=== PATIENT | male | born 1990 | race African-American/Black ===

== ENCOUNTER 2018-01-14 15:09 | Emergency (ER) | payer SELFPAY ==
--- NOTE | 2018-01-14 16:42 | RAD ---
LEFT HAND THREE VIEWS: HISTORY: Pain. COMPARISON: None. FINDINGS: There is now abnormal volar angulation of the lunate with some widening of the scapholunate interval. The capitate-lunate angle is approximately 60 degrees. There is mild proximal migration of the capitate. 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 POS: [facility]
== END 2018-01-14 16:59 | disposition home or self-care (01) ==
LOC: ERS 15:09
DX: M79.645 Pain in left finger(s) (principal); F17.210 Nicotine dependence, cigarettes, uncomplicated; Z71.6 Tobacco abuse counseling
CPT/HCPCS: 29125; 99406